=== PATIENT | female | born 1970 | race Caucasian/White ===

== ENCOUNTER 2023-09-23 12:12 | Emergency (ER) | payer MEDICARE, OTHER, SELFPAY ==
[2023-09-23 12:23] VITALS: BP 127/86
[2023-09-23 12:44] LABS: % Basophils 0.8 % (0-2); % Eosinophils 0.7 % (0-6); % Immature Granulocytes 0.1 % (0-0.5); % Lymphocytes 37.9 % (20.5-51.1); % Monocytes 8.3 % (1.7-9.3); % Neutrophils 52.2 % (42.2-75.2); Absolute Basophils 0.1 10^3/uL (0-0.2); Absolute Eosinophils 0.1 10^3/uL (0-0.7); Absolute Lymphocytes 2.9 10^3/uL (1.2-3.4); Absolute Monocytes 0.6 10^3/uL (0.1-0.6); Absolute Neutrophils 3.9 10^3/uL (1.4-6.5); Hematocrit 42.5 % (37.0-47.0); Hemoglobin 14.5 g/dL (12.0-16.0); Mean Corp Hgb Conc. 34.1 g/dL (33.0-37.0); Mean Corpuscular Hgb 29.6 pg (27.0-31.0); Mean Corpuscular Volume 86.7 fL (81.0-99.0); Mean Platelet Volume 8.5 fL (7.4-10.4); Nucleated Red Blood Cells % 0 %; Platelet Count 329 10^3/uL (130-400); Red Cell Dist. Width 12.3 % (11.5-14.5); White Blood Cell Count 7.6 10^3/uL (4.8-10.8)
[2023-09-23 13:01] LABS: ALT (SGPT) 19 U/L (0-35); AST (SGOT) 25 U/L (14-36); Albumin 5.1 g/dl (3.5-5.0); Alkaline Phosphatase 83 U/L (38-126); Blood Urea Nitrogen 15 mg/dl (7-17); Calcium 9.9 mg/dl (8.4-10.2); Carbon Dioxide 28 mmol/L (22-30); Chloride 100 mmol/L (98-107); Glucose 87 mg/dl (70-99); Potassium 4.4 mmol/L (3.5-5.1); Sodium 138 mmol/L (135-145); Total Bilirubin 0.8 mg/dl (0.2-1.3); Total Protein 7.4 g/dl (6.3-8.2); eGFR > 60.00
[2023-09-23 13:19] VITALS: BP 122/85
--- NOTE | 2023-09-23 13:39 | ED.GENMED ---
History of Present Illness
General
Chief Complaint: Medication Reaction
Source: patient
Time Seen by Provider: 09/23/23 13:17
History of Present Illness
History of Present Illness:
53yoF with a history of bipolar disorder, anxiety/depression, PTSD, thyroid cancer s/p thyroidectomy, and melanoma presenting with her mother for evaluation of multiple complaints. Patient was started on Lamictal 25mg daily 8 days ago by her
psychiatrist (Dr. Kate Swan) for her bipolar disorder. She started having multiple symptoms after being initiated on the medication. Her symptoms include forgetfulness, word finding difficulty, headache, intermittent rashes, fatigue, decreased
appetite, and feeling dry. She also reports that she looks more pale than usual. She self-discontinued the medication and has not had any doses for 3 days. She called her PCP today regarding her symptoms and she was sent to the ED for evaluation.
Phy Exam
General Physical Exam
General Presentation: well appearing and no apparent distress
General Skin: warm and dry
ENT Exam
Additional ENT: Oral mucosa appears normal.
Eye Exam
Eye Exam: PERRL
Cardiovascular Exam
Cardiovascular Exam: regular rate/rhythm
Heart Sounds: normal
Pulmonary Exam
Pulmonary Exam: lungs clear, no respiratory distress, no rales, no crackles and no rhonchi
Neurological Exam
Neurological Exam: alert and no motor deficits (Patient alert and oriented. Normal finger to nose and heel to s[place] bilaterally. Normal gait. No focal deficits appreciated. )
Skin Exam
Skin Exam: normal color, warm/dry and no rash
Psychiatric Exam
Psychiatric Exam: other (Intermittently tearful during exam)
Course
Orders/Labs/Results
Orders:
Orders
09/23/23 12:28
Electrocardiogram (*1) Urgent
Reason for Study: Other
Other Reason for Exam: medication rx
EKG- Treatment ONCE
09/23/23 12:35
Complete Blood Count/With Diff Urgent
Comprehensive Metabolic Panel Urgent
Abnormal Lab Results
09/23/23
12:35
Albumin 5.1 H g/dl
(3.5-5.0)
09/23/23 12:35
09/23/23 12:35
Vital Signs
Initial and Last Documented VS:
Initial Vital Signs
Temp Pulse Resp BP Pulse Ox
98.1 F 100 18 127/86 100
09/23/23 12:23 09/23/23 12:23 09/23/23 12:23 09/23/23 12:23 09/23/23 12:23
Last Documented Vital Signs
Temp Pulse Resp BP Pulse Ox
98.1 F 100 18 129/92 98
09/23/23 12:23 09/23/23 12:23 09/23/23 12:23 09/23/23 14:00 09/23/23 14:00
MDM/Problems Addressed
Differential Diagnosis Includes:
53yoF here with multiple symptoms including fatigue, forgetfulness, word finding difficulty, and feeling dry. Symptoms began after starting Lamictal last week which she self discontinued a few days ago. She is awake, alert, with a GCS of 15. She is
afebrile and hemodynamically stable. No focal neuro deficits on exam. Differential diagnosis includes but is not limited to: medication side effect, electrolyte abnormality, dehydration, doubt acute CVA
Labs checked in triage. CBC and CMP unremarkable. EKG shows NSR without ischemic changes. Neuro exam is nonfocal. Suspect presentation is 2/2 medication side effect. No indication for admission at this time. Advised f/u with PCP and psychiatrist. ED
return precautions discussed. Patient discharged in stable condition.
*EKG
Interpreted by ED Provider?: Yes
EKG Intrepretation Date: 09/23/23
EKG Intrepretation Time: 13:44
Interpretation: normal
Comparison EKG: no comparison EKG present
Heart Rate: 65
Rate: normal
Rhythm: sinus
[place]: normal axis
Interval: normal interval
Ischemia: no ischemia
*Critical Care Note
Total Time (30-74mins, 75-104mins- exclusive of procedures): Not Applicable
ED Attending Note
-
Portions of this chart may have been created with voice recognition software.� Occasional wrong word or��sound alike� substitutions may have occurred due to the inherent limitations of voice recognition software.
Discharge Plan
Departure
Patient Disposition: Home (Routine Discharge)
Date of Disposition: 09/23/23
Time of Disposition: 14:41
Patient with high blood pressure during this ER visit?: No
Discharge Problem:
Medication side effects
Instructions: Fatigue
Referrals:
Lore Howard CRNP [Family Provider] -
Activity Restrictions/Additional Instructions:
Please follow-up with your family doctor. Return to the ER with any new or worsening symptoms.
Interventions
Interventions:
*Risk Screen - Suicide Last Done: 09/23/23 13:21
*General Assessment Last Done: 09/23/23 13:21
*Neglect/Abuse Screening Last Done: 09/23/23 13:21
ED- Fall Risk Assessment Last Done: 09/23/23 14:51
*ED COVID-19 Vaccine History Last Done: 09/23/23 13:15
*Nursing Disposition Last Done: 09/23/23 14:51
ED-Skin Assessment Last Done: 09/23/23 13:21
ED- Pulmonary Assessment Last Done: 09/23/23 13:21
ED-EENT Assessment Last Done: 09/23/23 13:21
Discharge Date and Time
Discharge Date/Time: 09/23/23 14:52
Print Language: POLISH
[2023-09-23 14:00] VITALS: BP 129/92
== END 2023-09-23 14:52 | disposition home or self-care (01) ==
LOC: EMR 12:12
PROVIDERS: Emergency Medicine; EMERGENCY PHYSICIAN Emergency Medicine; FAMILY PHYSICIAN Nurse Practitioner Family
DX: R53.83 Other fatigue (principal); T42.6X5A Adverse effect of other antiepileptic and sedative-hypnotic drugs, initial encounter; Y92.9 Unspecified place or not applicable; F31.9 Bipolar disorder, unspecified; Z85.820 Personal history of malignant melanoma of skin; Z85.850 Personal history of malignant neoplasm of thyroid
CPT/HCPCS: 99283; 80053; 85025; 93005

== ENCOUNTER 2023-09-25 10:25 | Emergency (ER) | payer MEDICARE, OTHER, SELFPAY ==
[2023-09-25 10:31] VITALS: BP 123/86
--- NOTE | 2023-09-25 11:06 | ED.MUSCINJ ---
HPI-Injury
General
Chief Complaint: Musculo-Skeletal Complaint
Source: patient
Exam Limitations: none
Time Seen by Provider: 09/25/23 10:52
Nursing documentation reviewed up to this point in time: agreed with
History of Present Illness-Injury
Initial Injury comments:
53-year-old female with history of thyroid cancer with thyroidectomy, multiple melanomas followed by her lining stamper and Alexandre Parra, presents for severe left shoulder pain. She states she has had left shoulder pain for years intermittently and it
got so bad in the past few months that she was scheduled for physical therapy which she has been receiving twice a week for the past 2 months. Last night the shoulder pain became unbearable and she could not sleep. She can no longer lift the arm
due to significant pain. Sometimes the pain shoots down her arm and into her pinky finger and her neck.
She has tried Tylenol and ibuprofen with no help. She has taken nothing for pain recently. She is on diazepam 10 mg 3 times daily but she states that does not help the pain.
Past History
Past History
ED Past Medical History: Cancer (multiple melanomas of skin, followed by Derm and Alexandre Parra, Thyroid cancer)
ED Past Surgical History: Cholecystectomy, , Gynecological (Hysterectomy) and Other (Thyroidectomy Mohs surgery, multiple melanoma lesions removed)
Social History
Tobacco: Non-smoker
Alcohol: Occasional
Personal:
Living: alone
Employment: Employed
Musculoskeletal Injury Exam
Musculoskeletal Injury Exam
Right Shoulder:
Pain with Movement?: Moderate
Tender to palpation?: Moderate
Soft tissue swelling?: None
External deformity and angulation?: None
Strain- Sprain- Tear (Connective tissue injury)?: Other (bursitis, tendinitis, frozen shoulder)
Crepitus with movement?: No
Joint instability?: No
Malalignment/deformity?: No
Range of motion: Limited
Phy Exam
General Physical Exam
General Presentation: well appearing and no apparent distress
General age: appears stated age
General Skin: warm and dry
General Habitus: normal
General Mental: alert
General Hydration: appears well hydrated
Cardiovascular Exam
Cardiovascular Exam: regular rate/rhythm
Heart Sounds: normal
Pulmonary Exam
Pulmonary Exam: lungs clear
Neurological Exam
Neurological Exam: alert
Skin Exam
Skin Exam: normal color and warm/dry
Psychiatric Exam
Psychiatric Exam: normal mood/affect
Injury Course
Orders/Labs/Results
Orders:
Orders
09/25/23 11:04
Dexamethasone [Decadron] 10 mg PO NOW STA
Ketorolac [Toradol] 30 mg IM NOW STA
09/25/23 11:05
CR Shoulder - Left Min 2 View* Urgent
Reason For Exam: chronic pain, P/T, severe pain since last p.m.
09/25/23 11:49
Oxycodone/Acetaminophen [Percocet 5/325] 1 tablet PO NOW STA
09/25/23 11:52
Sling Left-Treatment ONCE
MDM/Problems Addressed
Differential Diagnosis Includes:
bursitis/tendinitis, calcific bursitis/tendinitis, frozen shoulder
MDM/Problems Addressed:
53-year-old female with history of thyroid cancer with thyroidectomy, multiple melanomas followed by her lining stamper and Alexandre Parra, presents for severe left shoulder pain. She states she has had left shoulder pain for years intermittently and it
got so bad in the past few months that she was scheduled for physical therapy which she has been receiving twice a week for the past 2 months. Last night the shoulder pain became unbearable and she could not sleep. She can no longer lift the arm
due to significant pain. Sometimes the pain shoots down her arm and into her pinky finger and her neck.
She has tried Tylenol and ibuprofen with no help. She has taken nothing for pain recently. She is on diazepam 10 mg 3 times daily but she states that does not help the pain.
11:45 AM
X-ray of left shoulder reveals a small bursal/tendon calcification
No relief with Toradol
Hx and exam consistent with calcific bursitis/tendinitis and frozen shoulder
Patient will be given a sling, referred to orthopedics, prescription for prednisone 40 mg daily for 4 days sent to her pharmacy. Prescription for Tramadol sent to her pharmacy
*Critical Care Note
Total Time (30-74mins, 75-104mins- exclusive of procedures): Not Applicable
ED Attending Note
-
Portions of this chart may have been created with voice recognition software.� Occasional wrong word or��sound alike� substitutions may have occurred due to the inherent limitations of voice recognition software.
Discharge Plan
Departure
Patient Disposition: Home (Routine Discharge)
Date of Disposition: 09/25/23
Time of Disposition: 11:49
Patient with high blood pressure during this ER visit?: No
Condition: Good
Discharge Problem:
Calcific tendinitis
Instructions: Calcific Tendinopathy of the Shoulder (DC), Tramadol
Prescriptions:
New
prednisone 20 mg tablet
40 mg PO DAILY Qty: 10 0RF
tramadol 50 mg tablet
50 mg PO BID PRN (Reason: Pain) Qty: 7 0RF
Referrals:
NONE,* [Family Provider] -
Ayad Cox MD [Active] - Next open appointment
Activity Restrictions/Additional Instructions:
As we discussed, wear the sling for no more than 2 days.
Start moving the shoulder more and more as comfort permits
Call today and make next available orthopedic appointment as you may need an injection if you are not better in 5-7 days on the current medication.
I sent a prescription to your pharmacy for Prednisone (steroid), start it tomorrow as you were given a dose of steroid here today.
I also sent a prescription for Tramadol to use if needed for pain.
Have a little food on your stomach when you take the medications
Interventions
Interventions:
*Risk Screen - Suicide Last Done: 09/25/23 10:31
*General Assessment Last Done: 09/25/23 10:31
*Neglect/Abuse Screening Last Done: 09/25/23 10:31
*Nursing Disposition Last Done: 09/25/23 12:12
ED-Musculoskeletal Assessment Last Done: 09/25/23 11:31
Discharge Date and Time
Discharge Date/Time: 09/25/23 12:13
Print Language: ANGOLAN
[2023-09-25] MEDS: DECADRON 10 MG PO (11:07)
[2023-09-25] MEDS: TORADOL 30 MG IM (11:08)
[2023-09-25 11:37] VITALS: BP 119/77
[2023-09-25] MEDS: PERCOCET 5/325 1 TABLET PO (12:03)
== END 2023-09-25 12:13 | disposition home or self-care (01) ==
LOC: EMR 10:25
PROVIDERS: EMERGENCY PHYSICIAN Student in an Organized Health Care Education/Training Program
DX: M75.32 Calcific tendinitis of left shoulder (principal); Z85.820 Personal history of malignant melanoma of skin; Z85.850 Personal history of malignant neoplasm of thyroid; Z90.49 Acquired absence of other specified parts of digestive tract; Z90.710 Acquired absence of both cervix and uterus
CPT/HCPCS: 99283; 96372; 73030

== ENCOUNTER 2024-09-20 11:51 | Emergency (ER) | payer MEDICARE, OTHER, SELFPAY ==
[2024-09-20 12:09] VITALS: BP 129/81
[2024-09-20 12:37] LABS: Hematocrit 42.4 % (37.0-47.0); Hemoglobin 14.6 g/dL (12.0-16.0); Mean Corp Hgb Conc. 34.4 g/dL (33.0-37.0); Mean Corpuscular Volume 86.2 fL (81.0-99.0); Nucleated Red Blood Cells % 0 %; Platelet Count 330 10^3/uL (130-400); Red Cell Dist. Width 12.4 % (11.5-14.5)
[2024-09-20 13:09] LABS: ALT (SGPT) 15 U/L (0-35); AST (SGOT) 20 U/L (14-36); Albumin 5.1 g/dl (3.5-5.0); Alkaline Phosphatase 56 U/L (38-126); Blood Urea Nitrogen 16 mg/dl (7-17); Calcium 9.5 mg/dl (8.4-10.2); Carbon Dioxide 26 mmol/L (22-30); Chloride 106 mmol/L (98-107); Glucose 97 mg/dl (70-99); Potassium 4.6 mmol/L (3.5-5.1); Sodium 141 mmol/L (135-145); Total Protein 7.1 g/dl (6.3-8.2); eGFR > 60.00
--- NOTE | 2024-09-20 15:16 | ED.GENMED ---
History of Present Illness
General
Chief Complaint: Weakness
Source: patient
Exam Limitations: none
Time Seen by Provider: 09/20/24 15:03
History of Present Illness
History of Present Illness:
See MDM
Past History
Past History
ED Past Medical History: Cancer (multiple melanomas of skin, followed by Arlene and Alexandre Parra, Thyroid cancer)
ED Past Surgical History: Cholecystectomy, , Gynecological (Hysterectomy) and Other (Thyroidectomy Mohs surgery, multiple melanoma lesions removed)
Social History
Tobacco: Non-smoker
Alcohol: Occasional
Personal:
Living: alone
Employment: Employed
Phy Exam
Physical Exam
Physical Exam:
See MDM
Course
Orders/Labs/Results
Orders:
Orders
09/20/24 12:20
Complete Blood Count/With Diff Urgent
Comprehensive Metabolic Panel Urgent
TSH Reflex To Free T4 Urgent
09/20/24 12:34
Electrocardiogram (*1) Urgent
Reason for Study: Fatigue / Weakness
EKG- Treatment ONCE
09/20/24 15:15
0.9% Sodium Chloride 1000 ml [Nss] 1,000 ml IV BOLUS
Abnormal Lab Results
09/20/24
12:20
Monocytes % 9.8 H %
(1.7-9.3)
Albumin 5.1 H g/dl
(3.5-5.0)
09/20/24 12:20
09/20/24 12:20
Vital Signs
Initial and Last Documented VS:
Initial Vital Signs
Temp Pulse Resp BP Pulse Ox
98.4 F 86 18 129/81 100
09/20/24 12:09 09/20/24 12:09 09/20/24 12:09 09/20/24 12:09 09/20/24 12:09
Last Documented Vital Signs
Temp Pulse Resp BP Pulse Ox
98.4 F 86 18 129/81 100
09/20/24 12:09 09/20/24 12:09 09/20/24 12:09/20/24 12:09/20/24 16:19
MDM/Problems Addressed
Differential Diagnosis Includes:
HPI and MDM Narrative:
54-year-old female presenting with generalized fatigue and weakness. This is associated with dizziness. Her symptoms do appear to be chronic. She talked to her doctor who sent her in the emergency department for blood work and IV fluids. She
complains of dehydration. Patient has pretty good insight to her medical issues and acknowledges that she does not eat or drink enough. She does acknowledge that she has an eating disorder and has a history of reflux. She states her doctor has
told her to stay away from many different types of foods. I did raise concern that I feel that she should be eating more than she actually is. Patient does agree and states that her doctor is going to facilitate a catering truck operator. On my exam, she is
well-appearing nontoxic. She does have dry mucous membranes but heart regular rate and rhythm and lungs clear. She has normal finger-nose bilaterally. EOMI. Will provide IV fluids. Blood work was done prior to my assessment showing no
significant abnormalities. EKG also performed which is normal
Physical exam
General: Well appearing and non-toxic
HEENT: protecting airway. Dry mucous membranes. EOMI. Pupils equal reactive
Neck: appears supple
CV: No evidence of cyanosis.regular rate and rhythm
Resp: No accessory muscle use
Abd: Non-distended
Extremities: No deformities
Neuro: alert. No focal deficits. Normal finger-nose bilaterally
Psych: Normal affect
Skin: Intact
Problems Addressed including Acute and Chronic Conditions affecting care:
1. Generalized weakness and dehydration
Acuity: acute
Prognosis: stable
Details: Likely related to being malnourished. She will follow-up with catering truck operator. Will provide IV fluids. Blood work and EKG without significant abnormalities
Updates
On reassessment after IV fluids, patient states she is feeling much better. She states the dizziness and weakness is improving and she is no longer feeling foggy. Patient states she feels comfortable going home
Differential Diagnosis (but not limited to): Dehydration, adverse medication reaction, stress
Testing considered: CT head
Drug therapy (if applicable): OTC meds, please see d/c instruction regarding Rx drugs
Amount and/or Complexity of Data Reviewed
Clinical info obtained from: Patient
External data reviewed: N/A
Labs I independently reviewed (but not limited to): Electrolytes within normal limits
Radiology: N/A
Pulse Ox: not hypoxic
EKG independently reviewed: Sinus rhythm, normal axis, no STEMI
Bioinformatics Developer: N/A
Critical Care: N/A
Risk of Complication:
Social Determinants of health: Good social support
Discussed with other providers: N/A
Escalation of Care includes Admit/Obs: After being observed in the Emergency Department, pt stable for discharge.
Occasional wrong word or 'sound a like' substitutions may have occurred due to the inherent limitations of voice recognition software. Read the chart carefully and recognize, using context, where substitutions have occurred.
*Pulse Oximetry
SaO2: 100
Oxygen Mode of Delivery: Room air
Patient hypoxic: no
*Critical Care Note
Total Time (30-74mins, 75-104mins- exclusive of procedures): Not Applicable
ED Attending Note
-
Portions of this chart may have been created with voice recognition software.� Occasional wrong word or��sound alike� substitutions may have occurred due to the inherent limitations of voice recognition software.
Discharge Plan
Departure
Patient Disposition: Home (Routine Discharge)
Date of Disposition: 09/20/24
Time of Disposition: 16:36
Patient with high blood pressure during this ER visit?: No
Discharge Problem:
Dehydration
Instructions: Dehydration in adults - ED discharge instructions
Prescriptions:
No Action
prednisone 20 mg tablet
40 mg PO DAILY Qty: 10 0RF
tramadol 50 mg tablet
50 mg PO BID PRN (Reason: Pain) Qty: 7 0RF
Referrals:
Ayad Alexandre MD [Family Provider]
Activity Restrictions/Additional Instructions:
Please return for any worsening symptoms.
You may return at any time if you have further concerns.
Please follow up with your doctor at the first available appointment, preferably this week.
Please talk about your symptoms and follow-up with a catering truck operator.
Thank you for choosing [facility].
Interventions
Interventions:
*Risk Screen - Suicide Last Done: 09/20/24 12:09
*General Assessment Last Done: 09/20/24 12:09
*Neglect/Abuse Screening Last Done: 09/20/24 12:09
*ED- Fall Risk Assessment Last Done: 09/20/24 16:15
*ED COVID-19 Vaccine History Last Done: 09/20/24 16:15
ED- Cardiac Assessment Last Done: 09/20/24 16:15
ED- Neurological Assessment Last Done: 09/20/24 16:15
ED- Pulmonary Assessment Last Done: 09/20/24 16:19
Discharge Date and Time
Print Language: LITHUANIAN
[2024-09-20] MEDS: NSS 1000 IV (16:13)
[2024-09-20 16:14] VITALS: BMI 25.2
[2024-09-20 16:45] VITALS: BP 109/69
== END 2024-09-20 16:57 | disposition home or self-care (01) ==
LOC: EMR 11:51
PROVIDERS: Emergency Medicine; EMERGENCY PHYSICIAN Student in an Organized Health Care Education/Training Program; FAMILY PHYSICIAN Internal Medicine
DX: E86.0 Dehydration (principal); C43.9 Malignant melanoma of skin, unspecified; C73 Malignant neoplasm of thyroid gland; F50.9 Eating disorder, unspecified; K21.9 Gastro-esophageal reflux disease without esophagitis; Z90.49 Acquired absence of other specified parts of digestive tract; Z88.1 Allergy status to other antibiotic agents; Z88.8 Allergy status to other drugs, medicaments and biological substances
CPT/HCPCS: 99284; 96360; 80053; 84443; 85025; 93005